=== PATIENT | male | born 1945 | race Caucasian/White ===

== ENCOUNTER 2017-04-28 15:29 | Emergency (ER) | payer MEDICARE, OTHER ==
[~2017-04-28] VITALS: Ht 185.4 cm; Wt 102.0 kg
[~2017-04-28 15:29] MED LIST: COUMADIN5 MG PO; COUMADIN7.5 MG PO; VITAMIN D400 UNI3 OR; WARFARIN7.5 MG PO
[2017-04-28] MEDS ORDERED: COUMADIN2.5 MG PO (16:07)
[2017-04-28] MEDS ORDERED: VARUBI90 MG PO (16:09)
[2017-04-28 16:35] LABS: PROTHROMBIN TIME 23.4 SECONDS (9.0-12.5)
[2017-04-28 17:14] VITALS: BP 151/75
== END 2017-04-28 17:20 | disposition home or self-care (01) ==
LOC: ED 15:29
PROVIDERS: Family Medicine
DX: M79.661 Pain in right lower leg (principal); Z86.718 Personal history of other venous thrombosis and embolism; Z79.01 Long term (current) use of anticoagulants

== ENCOUNTER 2017-07-30 08:41 | Emergency (ER) | payer MEDICARE, OTHER ==
[~2017-07-30] VITALS: Ht 185.4 cm; Wt 110.0 kg
[~2017-07-30 08:41] MED LIST changes: +COUMADIN2.5 MG PO; +VARUBI90 MG PO
[2017-07-30] MEDS ORDERED: AMOXICILLIN500 MG PO (09:52)
[2017-07-30] MEDS ORDERED: LORTAB 1010 MG PO (09:52)
[2017-07-30 09:57] VITALS: BP 145/70
== END 2017-07-30 10:20 | disposition home or self-care (01) ==
LOC: ED 08:41
PROC: 2W3RX1Z Immobilization of Left Lower Leg using Splint (ICD-10-PCS; principal; 2017-07-30)
DX: S92.425A Nondisplaced fracture of distal phalanx of left great toe, initial encounter for closed fracture (principal); W22.8XXD Striking against or struck by other objects, subsequent encounter